=== PATIENT | male | born 1995 | race Caucasian/White ===

== ENCOUNTER 2024-02-22 12:33 | Emergency (ER) | payer OTHER ==
[~2024-02-22] VITALS: Ht 182.9 cm; Wt 108.0 kg
[2024-02-22 13:02] VITALS: TEMP 98.4
[2024-02-22] MEDS ORDERED: [UNRECOGNIZED DRUG - CODE] PR (15:34)
[2024-02-22] MEDS ORDERED: POLY17PO47 PO (15:34)
[2024-02-22 15:39] VITALS: BP 142/90; PULSE 104; RESP 18; O2SAT 100
== END 2024-02-22 16:05 | disposition home or self-care (01) ==
LOC: EMS 12:33
DX: K59.00 Constipation, unspecified (principal); R10.32 Left lower quadrant pain
CPT/HCPCS: 74018; 99283